=== PATIENT | female | born 1990 | race African-American/Black ===

== ENCOUNTER 2019-09-11 17:03 | Emergency (ER) | payer MEDICAID, OTHER ==
[~2019-09-11] VITALS: Ht 167.6 cm; Wt 81.6 kg
[2019-09-11 17:31] VITALS: BP 120/70
== END 2019-09-11 18:59 | disposition home or self-care (01) ==
LOC: ER 17:03
DX: K04.7 Periapical abscess without sinus (principal); F31.9 Bipolar disorder, unspecified
CPT/HCPCS: 70486